=== PATIENT | male | born 1975 | race Caucasian/White ===

== ENCOUNTER 2024-10-29 11:58 | Emergency (ER) | payer OTHER, SELFPAY ==
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
[2024-10-29 12:05] VITALS: BP 160/80; PULSE 67; O2SAT 95; BMI 43.1
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
--- NOTE | 2024-10-29 12:13 | PC.NURSE ---
Pt A&O X4 VSS Moves all extremities well, c collar in place. Pt states pain located in center of upper back. No other pain reported. No numbness or tingling no dizziness. Pt with No Nausea or other symptoms. VSS
[2024-10-29 12:15] VITALS: BP 120/64; PULSE 62; RESP 18; TEMP 36.8; O2SAT 94
[2024-10-29 15:29] VITALS: BP 134/56; PULSE 60; RESP 19; TEMP 36.6; O2SAT 98
== END 2024-10-29 15:30 | disposition home or self-care (01) ==
PROVIDERS: Emergency Provider Emergency Medicine Emergency Medical Services
DX: S16.1XXA Strain of muscle, fascia and tendon at neck level, initial encounter (principal); V43.52XA Car driver injured in collision with other type car in traffic accident, initial encounter; Y93.89 Activity, other specified; Y92.414 Local residential or business street as the place of occurrence of the external cause; Y99.9 Unspecified external cause status
CPT/HCPCS: 70450; 72125; 99283; 99284

== ENCOUNTER → 2024-10-29 12:12 | Outpatient (BNV) | payer OTHER, SELFPAY | PROVIDERS: Emergency Provider Emergency Medicine Emergency Medical Services; Visit Provider Radiology Diagnostic Radiology | DX: M47.812 Spondylosis without myelopathy or radiculopathy, cervical region (principal); S09.90XA Unspecified injury of head, initial encounter; V89.2XXA Person injured in unspecified motor-vehicle accident, traffic, initial encounter | CPT/HCPCS: 70450; 72125 ==